=== PATIENT | male | born 1995 | race Caucasian/White ===

== ENCOUNTER 2017-02-16 10:52 | Emergency (ER) | payer BC, OTHER ==
[2017-02-16 11:06] VITALS: BP 138/82; PULSE 93; TEMP 98.2; BMI 40.8
[2017-02-16] MEDS ORDERED: SILVER SULFADIAZINE 1% TOP CREAM 50 GM JAR TP ONE ×2 (11:39→11:47)
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
== END 2017-02-16 11:55 | disposition home or self-care (01) ==
LOC: FER 10:52
PROC: 2W23X4Z Dressing of Abdominal Wall using Bandage (ICD-10-PCS; principal; 2017-02-16)
DX: T21.22XA Burn of second degree of abdominal wall, initial encounter (principal); X08.8XXA Exposure to other specified smoke, fire and flames, initial encounter; Y93.89 Activity, other specified; Y92.9 Unspecified place or not applicable
CPT/HCPCS: 99281-25

== ENCOUNTER 2017-08-07 21:46 | Emergency (ER) | payer BC ==
[2017-08-07 21:53] VITALS: BP 142/84; PULSE 104; TEMP 98.5; BMI 42.0
--- NOTE | 2017-08-07 22:11 | PDOC ---
History of Present Illness - General Chief Complaint: Pain, Acute Stated Complaint: REDNESS SWELLING UNDER RIGHT ARM Time Seen by Provider: 08/07/17 21:47 Past History - Past Medical History Allergies/Adverse Reactions: Allergies Allergy/AdvReac Type Severity Reaction Status Date / Time No Known Allergies Allergy Verified 08/07/17 21:47 Home Medications: Ambulatory Orders Clindamycin [Cleocin -] 300 mg PO Q6HPO #28 capsule 08/07/17 COPD: No Other medical history: DENIES - Immunization History Immunization Up to Date: Yes - Suicide/Smoking/Psychosocial Hx Smoking History: Never smoked Have you smoked in the past 12 months: No Number of Cigarettes Smoked Daily: 0 Information on smoking cessation initiated: No Hx Alcohol Use: No Drug/Substance Use Hx: No Substance Use Type: None Review of Systems - Review of Systems Constitutional: No: Symptoms Reported, See HPI, Chills, Diaphoresis, Fever, Loss of Appetite, Malaise, Night Sweats, Weakness, Weight Stable, Unintentional Wgt. Loss, Unexplained wgt Loss, Other HEENTM: No: Symptoms Reported, See HPI, Eye Pain, Blurred Vision, Tearing, Recent change in vision, Double Vision, Cataracts, Ear Pain, Ocular Prothesis, Ear Discharge, Nose Pain, Nose Congestion, Tinnitus, Nose Bleeding, Hearing Loss , Throat Pain, Throat Swelling, Mouth Pain, Dental Problems, Difficulty Swallowing, Mouth Swelling, Other Respiratory: No: Symptoms reported, See HPI, Cough, Orthopnea, Shortness of Breath, SOB with Exertion, SOB at Rest, Stridor, Wheezing, Productive cough, Hemoptysis, Other Cardiac (ROS): No: Symptoms Reported, See HPI, Chest Pain, Edema, Irregular Heart Rate, Lightheadedness, Palpitations, Syncope, Chest Tightness, Other ABD/GI: No: Symptoms Reported, See HPI, Abdominal Distended, Abd. Pain w/ defecation, Blood Streaked Bowels, Constipated, Diarrhea, Difficulty Swallowing , Nausea, Poor Appetite, Poor Fluid Intake, Rectal Bleeding, Vomiting, Indigestion, Abdominal cramping, Tarry Stools, Other Musculoskeletal: No: Symptoms Reported, See HPI, Back Pain, Gout, Joint Pain, Joint Swelling, Muscle Pain, Muscle Weakness, Neck Pain, Joint Stiffness, Other Integumentary: Yes: Other (hidradenitis of the right armpit) Neurological: No: Symptoms reported, See HPI, Headache, Numbness, Paresthesia, Pre-Existing Deficit, Seizure, Tingling, Tremors, Weakness, Unsteady Gait, Ataxia, Dizziness, Other *Physical Exam - Vital Signs Last Vital Signs Temp Pulse Resp BP Pulse Ox 98.5 F 104 H 18 142/84 99 08/07/17 21:48 08/07/17 21:48 08/07/17 21:48 08/07/17 21:48 08/07/17 21:48 - Physical Exam General Appearance: Yes: Nourished, Appropriately Dressed HEENT: positive: EOMI, SERENA, Normal ENT Inspection Neck: positive: Trachea midline, Supple Respiratory/Chest: positive: Lungs Clear, Normal Breath Sounds. 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 I sent off a wopund culture as the 0.5cm abscess in the right armpit is draining pus, as I popped it. 08/07/17 23:37 Pt will require outpatient surgical followup. *DC/Admit/Observation/Transfer Diagnosis at time of Disposition: Hidradenitis suppurativa of right axilla, Cellulitis of chest wall - Discharge Dispostion Disposition: HOME Condition at time of disposition: Stable - Prescriptions Prescriptions: Clindamycin [Cleocin -] 300 mg PO Q6HPO #28 capsule - Referrals Referrals: Yasir Regalado MD [Staff Physician] - - Patient Instructions Printed Discharge Instructions: DI for Cellulitis -- Adult - Post Discharge Activity
[2017-08-07] MEDS ORDERED: CLINDAMYCIN 900 MG PREMIX IVPB 900 MG/50 ML BAG IVPB ONE (22:35)
[2017-08-07] MEDS ORDERED: CLINDAMYCIN PHOSPHATE 600 MG/4 ML VIAL ONE (22:54)
[2017-08-07] MEDS ORDERED: CLINDAMYCIN PHOSPHATE 300 MG/2 ML VIAL ONE (22:54)
[2017-08-07 23:03] LABS: MCH 29.3 pg (25.7-33.7); MCHC 33.3 g/dl (32.0-35.9); MEAN CELL VOLUME 87.9 fl (80-96); MEAN PLT VOLUME 9.8 fl (7.5-11.1); PLATELET COUNT 300 K/MM3 (134-434); RDW 12.8 % (11.9-15.9); WHITE BLOOD COUNT 10.3 K/mm3 (4.0-10.8)
[2017-08-07 23:12] LABS: ANION GAP 8 (8-16); CALCIUM 9.2 mg/dl (8.4-10.2); CO2 25 mmol/L (22-28); CREATININE 0.9 mg/dl (0.6-1.3); GLUCOSE,RANDOM 126 mg/dl (74-106)
== END 2017-08-08 00:30 | disposition home or self-care (01) ==
LOC: FER 21:46
DX: L73.2 Hidradenitis suppurativa (principal); L03.313 Cellulitis of chest wall
CPT/HCPCS: 36415; 80048; 85027; 87070; 87186; 87205; 99281-25

== ENCOUNTER 2019-01-11 09:58 | Emergency (ER) | payer BC | END 2019-01-11 10:50 | disposition home or self-care (01) | LOC: FER 09:58 ==

== ENCOUNTER 2019-02-26 21:49 | Emergency (ER) | payer BC ==
[2019-02-26 22:28] VITALS: BP 142/74; PULSE 107; TEMP 99; BMI 39.5
--- NOTE | 2019-02-26 22:30 | PDOC ---
History of Present Illness - General Chief Complaint: Rash Stated Complaint: HIVES Time Seen by Provider: 02/26/19 22:28 - History of Present Illness Initial Comments: This otherwise healthy 23-year-old man presents with pruritic rash of his bilateral arms, chest and back as well as painful swelling of bilateral hands ( right greater than left) for the last day. Recent history notable for sore throat approximately 2 weeks ago for which he was prescribed Augmentin at urgent care facility(diagnosis of lingual tonsillitis). Quick strep was apparently negative in the office but he was empirically treated for bacterial pharyngitis. Patient states that he took the full 10 day dose of Augmentin 875/ 125 twice a day with course ending approximately 4 days ago. He had no history of rash or other ALLERGIC/adverse effects of the antibiotic. He denies previous history of medication ALLERGIES. No previous history of rheumatologic disease either in himself or his family. No recent fever or chills at home. He denies any lip/tongue swelling, difficulty swallowing or breathing at any time while taking the antibiotic or during the last 24 hours. The patient has been taking Benadryl at home today for the rash, last dose approximately 4 hours prior to presentation. He states that pruritus is persistent despite the multiple doses of Benadryl. no daily medications No known drug ALLERGIES No smoking history/social alcohol only/no other recreational drugs 02/27/19 00:55 Past History - Past Medical History Allergies/Adverse Reactions: Allergies Allergy/AdvReac Type Severity Reaction Status Date / Time No Known Allergies Allergy Verified 02/26/19 22:25 Home Medications: Ambulatory Orders predniSONE [Deltasone -] 60 mg PO DAILY #12 tablet 02/26/19 COPD: No - Immunization History Immunization Up to Date: Yes - Suicide/Smoking/Psychosocial Hx Smoking History: Never smoked Have you smoked in the past 12 months: No Number of Cigarettes Smoked Daily: 0 Information on smoking cessation initiated: No Hx Alcohol Use: Yes (SOCIALLY) Drug/Substance Use Hx: No Substance Use Type: None Review of Systems - Review of Systems Able to Perform ROS?: Yes Comments:: 12 point review of systems is negative except for what is noted in the history of present illness *Physical Exam - Vital Signs Last Vital Signs Temp Pulse Resp BP Pulse Ox 99 F 107 H 16 142/74 100 02/26/19 22:26 02/26/19 22:26 02/26/19 22:26 02/26/19 22:26 02/26/19 22:26 - Physical Exam Comments: GENERAL: Young adult male, alert and oriented 3, in no acute distress. Low- grade fever at 99F orally HEAD: Normal with no signs of trauma. EYES: PERRLA, EOMI, sclera anicteric, conjunctiva clear. ENT: Ears normal, nares patent, oropharynx clear without exudates. No lip/ tongue/uvular edema. Mucous membranes moist NECK: Normal range of motion, supple without lymphadenopathy, JVD, or masses. LUNGS: Breath sounds equal, clear to auscultation bilaterally. No wheezes, and no crackles. HEART:Regular rate and rhythm, normal S1 and S2 without murmur, rub or gallop. ABDOMEN:.normal bowel sounds No guarding,tenderness or rebound.No masses No distention. EXTREMITIES: Moderate edema of bilateral hands/wrists right greater than left. No other joint edema noted NEUROLOGICAL: Cranial nerves II through XII grossly intact. Normal speech. No focal neurological deficits. MUSCULOSKELETAL: Back non-tender to palpation, no CVA tenderness SKIN: Erythematous maculopapular rash of bilateral upper extremities/back/ anterior chest. Rash noted on bilateral palms. Rare maculopapular erythematous lesions seen on lower extremities Medical Decision Making - Medical Decision Making As noted above, this 23-year-old man, otherwise healthy, presents with markedly pruritic maculopapular rash of upper extremities and upper torso for the last day. Patient recently completed a 10 day course of Augmentin for acute pharyngitis. Of note, the patient has edema and pain of both hands/wrists, consistent with acute arthritis. No other arthralgias noted. No history of rheumatologic issues in this patient. Pruritic rash, appearing most like urticaria, of the upper extremities including bilateral palms, suggest ALLERGIC reaction, possibly delayed to Augmentin or other allergen. Painful swollen joints after possible streptococcal infection suggest a reactive arthritis. Patient will be started on prednisone 60 mg daily for 5 days with first dose given here in the emergency room. The patient has been advised to take the prednisone with a meal. It was emphasized to the patient that he MUST follow-up with his doctor within the next 2-3 days for further evaluation of possible poststreptococcal complications. He should return to the emergency room if he has any lip/tongue swelling, difficulty swallowing/breathing, high fever or severe rash *DC/Admit/Observation/Transfer Diagnosis at time of Disposition: Urticaria, Reactive arthritis of hand - Discharge Dispostion Disposition: HOME Condition at time of disposition: Stable - Prescriptions Prescriptions: predniSONE [Deltasone -] 60 mg PO DAILY #12 tablet - Referrals Referrals: Shaji Tello MD [Primary Care Provider] - 3 days - Patient Instructions Printed Discharge Instructions: [place] Additional Instructions: Prednisone 60 mg daily for the next 4 days; take with food Benadryl as needed for breakthrough itching Follow-up with Dr. Tello within the next 3-4 days Return to ER if you have lip swelling/difficulty breathing/high fever/worsening rash - Post Discharge Activity
[2019-02-26] MEDS ORDERED: predniSONE 20 MG TABLET (UD) PO ONE (22:57)
[2019-02-26] MEDS ORDERED: predniSONE 20 MG TABLET (UD) ONE (22:57)
== END 2019-02-26 23:10 | disposition home or self-care (01) ==
LOC: FER 21:49
DX: L50.9 Urticaria, unspecified (principal); M13.849 Other specified arthritis, unspecified hand
CPT/HCPCS: 99282-25

== ENCOUNTER 2019-02-28 00:36 | Emergency (ER) | payer BC ==
[2019-02-28 01:22] VITALS: TEMP 98.4; BMI 39.5
--- NOTE | 2019-02-28 02:01 | PDOC ---
History of Present Illness - General Chief Complaint: Allergic Reaction Stated Complaint: HIVES Time Seen by Provider: 02/28/19 01:49 - History of Present Illness Initial Comments: Adria Gonzalez is a 23yo man who who presents to the ED with itchign to the right elbow and right posterior axilla. He reports that he was seen at [facility] yesterday with diffuse hives after recently completing a course of antibiotics. He was given a course of prednisone and told to take diphehydramine for itching. He states that he took the first doses last night before bed and felt much improved this morning. However when he went to work around 8pm, he started to notice increased itching and bumps returning on his right elbow and axilla. He took another 60mg prednosine and 50mg Benadryl without significant improvement. His boss saw him scratching and directed him to come for medical evaluation. He reports that the bumps are smaller than yesterday, when the wheals were larger patches. He denies wheezing, difficulty breathing, throat swelling, or other systemic symptoms Past History - Past Medical History Allergies/Adverse Reactions: Allergies Allergy/AdvReac Type Severity Reaction Status Date / Time No Known Allergies Allergy Verified 02/28/19 01:22 Home Medications: Ambulatory Orders predniSONE [Deltasone -] 60 mg PO DAILY #12 tablet 02/26/19 COPD: No - Immunization History Immunization Up to Date: Yes - Suicide/Smoking/Psychosocial Hx Smoking History: Never smoked Have you smoked in the past 12 months: No Number of Cigarettes Smoked Daily: 0 Information on smoking cessation initiated: No Hx Alcohol Use: Yes Drug/Substance Use Hx: No Substance Use Type: None Review of Systems - Review of Systems Comments:: General: No fevers, no chills, no weight or appetite change, no malaise HEENT: No changes in vision, no changes in hearing, no congestion, no sore throat CV: No chest pain, no palpitations, no LE edema Pulm: No SOB, no cough, no wheezing GI: No nausea or vomiting, no change in bowel habits, no melena : No frequency, no urgency, no dysuria Musc: No back pain, no joint swelling, no recent injury Skin: See HPI Endo: No excessive thirst, no heat/cold intolerance Heme: No unusual bruising or bleeding, no swollen glands Neuro: No syncope, no numbness/tingling, no focal weakness Vasc: No claudication Psych: No recent change in mood, no SI or HI *Physical Exam - Vital Signs Last Vital Signs Temp Pulse Resp BP Pulse Ox 98.4 F 100 H 16 132/84 97 02/28/19 00:36 02/28/19 00:36 02/28/19 00:36 02/28/19 00:36 02/28/19 00:36 - Physical Exam Comments: General: Comfortable, no acute distress HEENT: PERRL, EOMI, MMM, voice normal, uvula midline, no pharyngeal erythema, no tonsillar edema Cards: RRR, no murmur appreciated Pulm: Comfortable on room air, clear to auscultation bilaterally Abd: Soft, nontender, nondistended Ext: Atraumatic. No LE edema. ROM intact. Vasc: Extremities WWP. Skin: Small, 4-5mm erythematous wheals in a patch on the right elbow and posterior right axilla Neuro: A&Ox3, CN grossly intact, normal speech, motor/sensory grossly intact and symmetric Psych: Mood appropriate to situation Medical Decision Making - Medical Decision Making 02/28/19 01:57 Adria Gonzalez is a 23yo man who who presents to the ED with itchy, erythematous wheals on his right elbow and right posterior axilla. He has no systemic symptoms, airway compromise, or vital sign abnormalities and is currently being treated with prednisone and diphehydramine, started yesterday. - Appears to be improving overall, only small areas w/ wheals noted today - No additional workup needed at this time - Recommending follow up with dermatology and allergy Discussed with Dr Trujillo. Cielo Manriquez PGY2 *DC/Admit/Observation/Transfer Diagnosis at time of Disposition: Urticaria - Discharge Dispostion Disposition: HOME Condition at time of disposition: Stable Decision to Admit order: No - Referrals Referrals: Josselin Stanley MD [Staff Physician] - Zohaib Rader MD [Staff Physician] - - Patient Instructions Printed Discharge Instructions: DI for Hives Additional Instructions: You were seen in the ED for continued itching of previously diagnosed hives and allergic reaction. Please continue to take the prednisone that was previously prescribed You may consider using cortisone cream or calamine lotion for itching. please make an appointment to see your regular doctor within the next 1-2 days if your symptoms continue. Seek immediate care if you have any difficulty breathing, wheezing, tightness in your throat, or any other medical emergency. - Post Discharge Activity Forms/Work/School Notes: Back to Work
--- NOTE | 2019-02-28 02:15 | PDOC ---
Documentation entered by Daniella Veliz SCRIBE, acting as scribe for Heather Trujillo DO. Heather Trujillo DO: This documentation has been prepared by the Jose Alfredo burciaga Lincy, SCRIBE, under my direction and personally reviewed by me in its entirety. I confirm that the documentation accurately reflects all work , treatment, procedures, and medical decision making performed by me. Attending Attestation - Resident Resident Name: Cielo Manriquez - ED Attending Attestation I have performed the following: I have examined & evaluated the patient, The case was reviewed & discussed with the resident, I agree w/resident's findings & plan - HPI HPI: 02/28/19 02:07 The patient is a 23 year old male presents to the emergency department with a rash to the right elbow and right axillary region. The patient reports hes been having several days of on and off rashes, possibly related to augmentin use. The patient reports improvement with benadryl and prednisone use, however the rashes has recurred now to the right elbow and axillary region. Denies airway compromise or shortness of breath. Allergies: NKDA - Physicial Exam PE: 02/28/19 02:07 Agree with resident exam 02/28/19 02:13 - Medical Decision Making 02/28/19 02:13 23 yo male with intermittent rashes exam today c/w local allergic reaction without airway compromise plan for d/c home with continued prednisone and benadryl prn follow recommended with dermatology and application designer
[2019-02-28 03:54] VITALS: BP 132/87; PULSE 97
== END 2019-02-28 02:25 | disposition home or self-care (01) ==
LOC: JER 00:36
DX: L50.9 Urticaria, unspecified (principal)
CPT/HCPCS: 99282-25